=== PATIENT | male | born 1945 | race Hispanic/Latino ===

== ENCOUNTER 2022-09-22 06:43 | Day surgery (SDC) | payer OTHER ==
[2022-09-18 14:37] VITALS: BP 140/76
[2022-09-18 14:42] LABS: BASOPHILS % (AUTO) 0.6 % (0.0-5.0); EOSINOPHILS % (AUTO) 2.3 % (0.0-8.0); HEMATOCRIT 31.1 % (42-54); LYMPHOCYTES % (AUTO) 14.8 % (21.0-51.0); MEAN CORPUSCULAR HEMOGLOBIN 30.1 pg (27.0-33.0); MEAN CORPUSCULAR HGB CONC 34.1 g/dL (32.0-36.0); MEAN CORPUSCULAR VOLUME 88.4 fL (79-99); MONOCYTES % (AUTO) 6.7 % (3.0-13.0); NEUTROPHILS % (AUTO) 75.2 % (40.0-77.0); PLATELET COUNT (AUTO) 191 K/uL (130-400); RED BLOOD CELL COUNT(AUTO) 3.52 MIL/uL (4.50-6.20); RED CELL DISTRIBUTION WIDTH 12.6 % (11.0-15.5); WHITE BLOOD COUNT (AUTO) 4.8 K/uL (4.8-10.8)
[2022-09-18 15:07] LABS: CREATININE 2.6 mg/dL (0.5-1.5)
[2022-09-22] VITALS (16 sets, daily range): BP systolic 111–152; BP diastolic 58–76
[~2022-09-22] VITALS: Ht 162.6 cm; Wt 64.4 kg
[~2022-09-22 06:43] MED LIST: AMLO-257 PO; ASPI-1197 PO; ATOR40TA69 PO; FERS325 PO; INSU100V52 SQ; LEVO75CA5 PO; NEPHROVITE PO; RENAL VITAMIN PO; TAMS0.4C32 PO; VITAMIN D3 PO; [UNRECOGNIZED DRUG - OTHER] PO
[2022-09-22] MEDS ORDERED: 0.9%NACL 1000ML 1,000 ML IV ONE (07:02)
[2022-09-22] MEDS: CEFAZOLIN SODIUM 2 GM VIAL ONE ×2 (07:38→08:20)
[2022-09-22] MEDS ORDERED: MIDAZOLAM HCL 1 MG/ML 2ML VIAL ONE (08:17)
[2022-09-22] MEDS ORDERED: FENTANYL CITRATE PF 50 MCG/1 ML 2ML VIAL ONE (08:17)
[2022-09-22] MEDS ORDERED: LIDOCAINE PF 100MG/5ML (2%) SYRINGE 5ML ONE (08:17)
[2022-09-22] MEDS ORDERED: PROPOFOL 10 MG/ML 20ML VIAL IV ONE (08:17)
[2022-09-22] MEDS ORDERED: BUPIVACAINE/PF 0.25% 30ML VIAL IJ ONE (08:24)
[2022-09-22] MEDS ORDERED: LIDOCAINE HCL 1% 20 ML VIAL ONE (08:24)
[2022-09-22] MEDS ORDERED: ONDANSETRON 4MG INJ ONE (08:25)
[2022-09-22] MEDS ORDERED: DEXAMETHASONE SOD PHOSPHATE 4 MG/ML 1ML VIAL ONE (08:25)
[2022-09-22] MEDS ORDERED: GLYCOPYRROLATE 1 MG/5 ML SYRINGE ONE (08:41)
[2022-09-22] MEDS ORDERED: PHENYLEPHRINE HCL 10 MG/ML 1ML VIAL IV ONE (08:41)
== END 2022-09-22 10:13 | disposition home or self-care (01) ==
LOC: DAH 06:43
PROVIDERS: ATTEND Surgery
DX: L72.3 Sebaceous cyst (principal); Z20.822 Contact with and (suspected) exposure to COVID-19; E11.43 Type 2 diabetes mellitus with diabetic autonomic (poly)neuropathy; K31.84 Gastroparesis; I25.10 Atherosclerotic heart disease of native coronary artery without angina pectoris; E03.9 Hypothyroidism, unspecified; M10.9 Gout, unspecified; D64.9 Anemia, unspecified; F32.A Depression, unspecified; Z79.890 Hormone replacement therapy; Z79.899 Other long term (current) drug therapy; Z82.49 Family history of ischemic heart disease and other diseases of the circulatory system; Z83.3 Family history of diabetes mellitus
CPT/HCPCS: 93005; 87426; 80048; 85025; 36415; 11404; 82948 ×2; A6260; J1100; A4663; J7030 ×2; A4452; J3010; J3490 ×2; J2001; J2250; J2704; J2405; J2370; J0690; A4930; A4215; A4223; A4222; A4221